=== PATIENT | female | born 1975 | race Two or more races ===

== ENCOUNTER 2019-10-14 12:14 | Emergency (ER) | payer BC, SELFPAY ==
--- NOTE | 2019-10-14 12:24 | ED.URI ---
HPI - URI/Sore Throat General Chief Complaint: Upper Respiratory Infection Stated Complaint: Congestion/Ear Pain Time Seen by Provider: 10/14/19 12:39 Source: patient and RN notes reviewed Mode of arrival: ambulatory Limitations: no limitations History of Present Illness HPI Narrative: 44-year-old female presents with concern for nasal congestion, rhinorrhea, sore throat, bilateral ear pain, occasional cough, chills, body aches that started yesterday. Reports taking Tylenol. MD elicited complaint: nasal congestion and other (Ear pain) Related Data Home Medications Medication Instructions Recorded Confirmed lisinopril 20 mg PO DAILY 10/14/19 10/14/19 Allergies Allergy/AdvReac Type Severity Reaction Status Date / Time Penicillins Allergy Rash Verified 10/14/19 12:49 Review of Systems Review of Systems: Narrative: CONSTITUTIONAL: Reports malaise, chills, sweats, fever. EYES: Denies visual changes, redness, or discharge. ENT: Reports rhinorrhea, congestion, sinus pain, otalgia and sore throat. CARDIOVASCULAR: Denies chest pain, palpitations, or edema. RESPIRATORY: Reports cough. Denies dyspnea. GASTROINTESTINAL: Denies abdominal pain, nausea, vomiting, diarrhea SKIN: Denies rash or itching. MUSCULOSKELETAL: Reports myalgia. NEUROLOGIC: Reports headache. All systems reviewed & are unremarkable except as noted in HPI and below PMFSH Comments At time of signature, agree with nursing past medical, surgical, social and family history. There is no relevant family history pertinent to the presenting complaint Exam Narrative: Exam Narrative: GENERAL: Well-appearing, well-nourished, and in no acute distress. HEAD: Normocephalic EYES: PERRLA, conjunctivae clear ENT: Nares clear, turbinates edematous and erythematous, clear discharge. Mucous membranes moist. TM pearly davies with dull light reflex bilaterally; no tragal tenderness. Oropharynx mildly erythematous without lesions. Tonsils not enlarged and without exudate, no drooling, no hoarseness, no trismus. NECK: Supple. No lymphadenopathy CHEST: Clear to auscultation, breath sounds equal. No wheezing, rhonchi, rales, or stridor. No respiratory distress, speaks in full sentences. HEART: Regular rate and rhythm. No murmur heard. Normal peripheral pulses. SKIN: Warm, dry, no rash. NEURO: Alert and oriented x3. PSYCH: Normal mood and affect Course Course Emergency Course: Patient is aware of diagnosis, understands and agrees to treatment plan. Anticipatory guidance given. Patient agrees to follow-up as directed and is aware of reasons to seek care at the emergency department. Portions of this record may have been created with voice recognition software Vital Signs Vital signs: Vital Signs Temperature 99.4 F 10/14/19 12:26 Pulse Rate 73 10/14/19 12:26 Respiratory Rate 16 10/14/19 12:26 Blood Pressure 115/76 10/14/19 12:26 Pulse Oximetry 98 10/14/19 12:26 Temperature 99.4 F 10/14/19 12:26 Pulse Rate 73 10/14/19 12:26 Respiratory Rate 16 10/14/19 12:26 Blood Pressure 115/76 10/14/19 12:26 Pulse Oximetry 98 10/14/19 12:26 Reviewed. MDM - URI/Sore Throat MDM Narrative Medical decision making narrative: Differential diagnosis considered: Strep pharyngitis, allergic rhinitis, upper respiratory tract infection, sinusitis, rhinosinusitis, nasopharyngitis. viral pharyngitis, otitis media, otitis externa, pneumonia, bronchitis, viral cough syndrome, viral syndrome, and influenza. Exam findings show no acute concerns or changes; patient is non-toxic appearing and is in no distress. Patient is appropriate for outpatient treatment and follow-up. Lab Data Attestation: I reviewed the patient's lab results. Labs: Influenza A Screen Negative Reference Range: Negative Influenza B Screen Negative Reference Range: Negative Strep Screen Presumptive Negative *(Reference Range: Negative)* Crit
[2019-10-14 12:26] VITALS: BP 115/76; PULSE 73; RESP 16; TEMP 37.4; O2SAT 98
== END 2019-10-14 13:15 | disposition home or self-care (01) ==
PROVIDERS: Emergency Provider Nurse Practitioner
DX: R09.81 Nasal congestion (principal); J34.89 Other specified disorders of nose and nasal sinuses; J02.9 Acute pharyngitis, unspecified; H92.03 Otalgia, bilateral; R05 Cough
CPT/HCPCS: 87081; 87804; 87880; 99203; G0463

== ENCOUNTER 2020-11-19 15:24 | Emergency (ER) | payer BC, SELFPAY ==
--- NOTE | 2020-11-19 15:33 | ED.SKABFB ---
HPI - Skin/Abscess/Foreign Bdy General Chief complaint: Skin/Abscess/Foreign Body Stated complaint: rash on stomach Time Seen by Provider: 11/19/20 15:39 Source: patient and RN notes reviewed History of Present Illness HPI narrative: Patient is a 45-year-old female who presents the urgent care with complaints of a rash to the abdomen, back and neck. Patient states it started on the abdomen approximately 3 days ago and her daughter told her it was starting on her back and neck. Patient states it is very itchy and tingling and she has been taking oral Benadryl and putting Vaseline to the rash. Patient denies of any any other symptoms such as upper respiratory symptoms or sore throat. Patient denies of any fever. Denies of anyone else in the home having the rash. No other acute complaints. No acute distress noted. Patient aware of the plan of care. Some parts of this dictation were generated by voice recognition software and may contain typographical and/or grammatical inaccuracies. Related Data Home Medications Medication Instructions Recorded Confirmed lisinopril-hydrochlorothiazide tablet 11/19/20 propranolol 11/19/20 topiramate 11/19/20 Allergies Allergy/AdvReac Type Severity Reaction Status Date / Time Penicillins Allergy Rash Verified 11/19/20 15:40 Review of Systems Review of Systems: Narrative: CONSTITUTIONAL: Denies fever, chills, or sweats. EYES: Denies visual changes, redness, or discharge. ENT: Denies rhinorrhea, congestion, sore throat, or otalgia. CARDIOVASCULAR: Denies chest pain, palpitations, or edema. RESPIRATORY: Denies cough or dyspnea. GASTROINTESTINAL: Denies abdominal pain, nausea, vomiting, or diarrhea. GENITOURINARY: Denies dysuria or hematuria. SKIN: Reports of an itchy red rash to the abdomen/back/neck MUSCULOSKELETAL: Denies back pain, joint pain, or myalgia. NEUROLOGIC: Denies headache, numbness, or weakness. All other systems reviewed are negative, except as documented in HPI. PMFSH Comments At the time of my signature, I reviewed and agree with the nursing past medical, surgical, social, and family history. There is no relevant family history pertinent to the patient complaint. Exam Narrative: Exam Narrative: GENERAL: This is a well-nourished, well-developed patient, in no apparent distress. HEAD: normocephalic, atraumatic. EYES: PERRL. Sclera clear/white. Vision is grossly intact. EARS: External ears normal NOSE: External nose normal with no obvious nasal discharge, nares without redness, no rhinorrhea. THROAT: Mucous membranes moist NECK: Neck supple SKIN: Pruritic slightly raised papular erythemic dermatitis noted to the abdomen; mild erythemic and dry skin noted to the back and neck NEURO: awake, alert, and oriented to person, place and time. There were no obvious focal neurologic abnormalities. EXTREMITIES: No clubbing, cyanosis, or edema. Course Vital Signs Vital signs: Vital Signs Temperature 99.6 F 11/19/20 15:36 Pulse Rate 76 11/19/20 15:36 Respiratory Rate 16 11/19/20 15:36 Blood Pressure 111/75 11/19/20 15:36 Pulse Oximetry 98 11/19/20 15:36 Temperature 99.6 F 11/19/20 15:36 Pulse Rate 76 11/19/20 15:36 Respiratory Rate 16 11/19/20 15:36 Blood Pressure 111/75 11/19/20 15:36 Pulse Oximetry 98 11/19/20 15:36 Reviewed MDM - Skin/Abscess/Foreign Bdy MDM Narrative Medical decision making narrative: Advised the patient to continue using the [id number]-ttr-olwhvjl antihistamine such as Benadryl as needed for itch relief. Complete the steroid regimen as prescribed. The steroid is meant to lessen/decrease the spread of the rash as well as decrease the itch. Use the prescription cream to the affected areas. Avoid using the cream near the eyes, underarms or groin. If you develop any spread in the rash or an significant clearing?follow-up with your PCP. Follow-up with your PCP within 2 to 5 days or for worsening symptoms or failure to impro
[2020-11-19 15:36] VITALS: BP 111/75; PULSE 76; RESP 16; TEMP 37.6; O2SAT 98
== END 2020-11-19 15:52 | disposition home or self-care (01) ==
PROVIDERS: Emergency Provider Nurse Practitioner Family; PCP Internal Medicine
DX: L30.9 Dermatitis, unspecified (principal); I10 Essential (primary) hypertension
CPT/HCPCS: 99213; G0463

== ENCOUNTER 2021-12-04 15:09 | Emergency (ER) | payer BC, SELFPAY ==
[2021-12-04 15:15] VITALS: BP 104/75; PULSE 70; RESP 16; TEMP 36.8; O2SAT 100
--- NOTE | 2021-12-04 15:15 | ED.LOWEXIN ---
HPI - Extremity Injury (Lower) General Chief Complaint: Extremity Injury, Lower Stated Complaint: Left Knee Injury Time Seen by Provider: 12/04/21 15:15 Source: patient and RN notes reviewed History of Present Illness HPI Narrative: Patient is a 46-year-old female who presents the urgent care with complaints of left knee pain. Patient states that yesterday her large pitbull ran into her left knee while he was running around in circles. Patient states that her knee only hurts when she flexes the leg outward and with weightbearing. Patient has been wearing a knee brace [id number]. 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 Patient denies of any swelling. She has been taking Tylenol without relief. No other acute complaints. No acute distress noted. Patient aware of the plan of care. Some parts of this dictation were generated by voice recognition software and may contain typographical and/or grammatical inaccuracies. Related Data Home Medications Medication Instructions Recorded Confirmed buspirone 15 mg PO DAILY 12/04/21 12/04/21 [id number]-nidkkvoftoxzg-tdle 1 tablet PO Q4-6H PRN 12/04/21 12/04/21 lisinopril-hydrochlorothiazide 1 tablet PO DAILY 12/04/21 12/04/21 quetiapine 50 mg PO TID 12/04/21 12/04/21 topiramate 200 mg PO BID 12/04/21 12/04/21 Allergies Allergy/AdvReac Type Severity Reaction Status Date / Time Penicillins Allergy Rash Verified 11/19/20 15:40 Review of Systems Review of Systems: CONSTITUTIONAL: Denies fever, chills, or sweats. EYES: Denies visual changes, redness, or discharge. ENT: Denies rhinorrhea, congestion, sore throat, or otalgia. CARDIOVASCULAR: Denies chest pain, palpitations, or edema. RESPIRATORY: Denies cough or dyspnea. GASTROINTESTINAL: Denies abdominal pain, nausea, vomiting, or diarrhea. GENITOURINARY: Denies dysuria or hematuria. SKIN: Denies rash or itching. MUSCULOSKELETAL: Reports of left knee pain NEUROLOGIC: Denies headache, numbness, or weakness. All other systems reviewed are negative, except as documented in HPI. PMFSH Comments At the time of my signature, I reviewed and agree with the nursing past medical, surgical, social, and family history. There is no relevant family history pertinent to the patient complaint. Exam Narrative: GENERAL: This is a well-nourished, well-developed patient, in no apparent distress. HEAD: normocephalic, atraumatic. EYES: PERRL. Sclera clear/white. Vision is grossly intact. EARS: External ears normal NOSE: External nose normal with no obvious nasal discharge, nares without redness, no rhinorrhea. THROAT: Mucous membranes moist NECK: Neck supple SKIN: warm, intact with no suspicious lesions or rash, good texture and turgor. NEURO: awake, alert, and oriented to person, place and time. There were no obvious focal neurologic abnormalities. EXTREMITIES: No obvious effusion or deformity noted to the left knee. Exacerbated pain on outward flexion and weightbearing. Positive strong left pedal pulse with capillary refill less than 2 seconds. Negative drawer test. Course Course Level of Care: Express Care Visit Vital Signs Vital signs: Vital Signs Temperature 98.2 F 12/04/21 15:15 Pulse Rate 70 12/04/21 15:15 Respiratory Rate 16 12/04/21 15:15 Blood Pressure 104/75 12/04/21 15:15 Pulse Oximetry 100 12/04/21 15:15 Temperature 98.2 F 12/04/21 15:15 Pulse Rate 70 12/04/21 15:15 Respiratory Rate 16 12/04/21 15:15 Blood Pressure 104/75 12/04/21 15:15 Pulse Oximetry 100 12/04/21 15:15 Reviewed MDM - Extremity Injury (Lower) MDM Narrative Medical decision making narrative: Advised the patient to continue wearing her knee brace to the left knee with elevation and ice for comfort. Use the tramadol as needed for pain. Do not take tramadol together with NSAIDs however you may use Tylenol intermittently as needed. Try to stay off the leg is mu
== END 2021-12-04 15:45 | disposition home or self-care (01) ==
PROVIDERS: Emergency Provider Nurse Practitioner Family; PCP Internal Medicine
DX: M25.562 Pain in left knee (principal); I10 Essential (primary) hypertension
CPT/HCPCS: 99213; G0463

== ENCOUNTER 2023-07-21 13:12 | Emergency (ER) | payer BC, SELFPAY ==
[2023-07-21 13:20] VITALS: BP 151/91; PULSE 95; RESP 12; TEMP 36.8; O2SAT 99
--- NOTE | 2023-07-21 13:29 | ED.URI ---
HPI - URI/Sore Throat General Chief Complaint: Upper Respiratory Infection Stated Complaint: Congestion/Chest Congestion/Nausea Source: patient, RN notes reviewed and old records reviewed Mode of arrival: ambulatory Limitations: no limitations History of Present Illness HPI Narrative: 48-year-old female presents to urgent care with complaint productive cough, sinus congestion, fever and chills, and nausea for 2 weeks. Patient taken xsmh-gxi-lpxzbif sinus/ cold medications in using nasal spray with no relief. Patient states on clindamycin for a dental issue, that was given to her by her nurse hotline. Patient denies chest pain, shortness of breath, dizziness, weakness. MD elicited complaint: fever, cough and nasal congestion Onset (ago): week(s) (2) Related Data Home Medications Medication Instructions Recorded Confirmed buspirone 15 mg tablet 15 mg PO DAILY 12/04/21 12/04/21 [id number]-tnksyqbvmclyh-kkfnjsnu 1 tablet PO Q4-6H PRN pain 12/04/21 12/04/21 50 mg-325 mg-40 mg tablet lisinopril 20 1 tablet PO DAILY 12/04/21 12/04/21 mg-hydrochlorothiazide 12.5 mg tablet quetiapine 50 mg tablet 50 mg PO TID 12/04/21 12/04/21 acetaminophen 300 mg-codeine 30 mg tablet 07/21/23 tablet clindamycin HCl 150 mg capsule mg 07/21/23 trazodone 100 mg tablet mg 07/21/23 trazodone 150 mg tablet mg 07/21/23 07/21/23 Allergies Allergy/AdvReac Type Severity Reaction Status Date / Time Penicillins Allergy Rash Verified 07/21/23 13:13 Review of Systems Constitutional: Constitutional: Reports as per HPI, Reports body ache(s), Reports chills and Reports fever(s) Eyes: Eyes: Reports no additional eye complaints ENT: Reports system reviewed and no additional complaints, except as documented Cardiovascular: Cardiovascular: Reports no additional cardiovascular complaints Respiratory: Respiratory: Reports as per HPI, Reports chest congestion and Reports cough Gastrointestinal: Gastrointestinal: Reports as per HPI, Reports nausea and Denies vomiting Neurologic: Reports system reviewed and no additional complaints, except as documented PMFSH Comments At the time of my signature, I reviewed and agree with the nursing past medical, surgical, social, and family history. There is no relevant family history pertinent to the patient complaint. Exam Const: General: cooperative, healthy appearing, no acute distress and well nourished Nutritional Appearance: well nourished Orientation/consciousness: patient oriented x3 Limitations: no limitations HENMT: Head: normal to inspection and normocephalic Ears: external ears normal, TM's normal bilaterally, mastoids normal and Abnormal EAC present Face/Nose/Sinus: normal facial exam Face and sinus: normal facial exam Mouth: Yes Normal oral and palatal mucosa present, Yes oropharynx normal and Yes moist mucous membranes Throat: posterior oropharynx normal, tonsils normal, uvula midline and no uvular edema Eyes: General: appearance normal, both eyes and all related structures Sclera: sclerae normal Pupils: Equal, round and reactive pupils present Resp: Effort & Inspection: normal respiratory effort, able to speak in complete sentences, no audible wheezes, no cough, no respiratory distress and no retractions Auscultation: clear to auscultation bilaterally, no crackles, no rales, no rhonchi and no wheezes Cardio: Rate: regular rate Rhythm: regular rhythm Skin: General skin exam: normal color and no rashes or lesions noted Neuro: General: patient oriented x3 Cranial nerves: Yes Equal, round and reactive pupils present Psych: Appearance: grossly normal Course Course Emergency Course: Some parts of this dictation were generated by voice recognition software and may contain typographical and/or grammatical inaccuracies. Level of Care: Express Care Visit Vital Signs Vital signs: Vital Signs Temperature 98.2 F 07/21/23 13:20 Pulse Rate 95 07/21/23 13:20 Respiratory
== END 2023-07-21 13:45 | disposition home or self-care (01) ==
PROVIDERS: Emergency Provider Registered Nurse; PCP Physician Assistant
DX: J32.9 Chronic sinusitis, unspecified (principal); I10 Essential (primary) hypertension
CPT/HCPCS: 99213; G0463

== ENCOUNTER 2023-11-03 01:34 | Day surgery (SDC) | payer BC, SELFPAY ==
[2023-10-26 14:27] VITALS: BMI 26.2
[2023-11-03 09:41] VITALS: BP 113/70; PULSE 66; RESP 18; TEMP 36.2; O2SAT 100
[2023-11-03] MEDS: LACTATED RINGERS 1,000 ML 150 ML IV CONT (09:49)
--- NOTE | 2023-11-03 10:12 | P.PNAN_ITS ---
Anes - Initial Pre Proc Eval Procedure: Operation Date: 11/03/23 11:00 Proposed Procedures p Colonoscopy - Oscar Sloan MD Date/Time: 11/03/23 10:12 Surgeon: Oscar Sloan MD Pre Op Diagnosis: hx colon polyps Patient Data Age: 48 Gender: F Height: 1.65 m Weight: 72.6 kg Last Vital Signs Temp 97.1 F L 11/03/23 09:41 Pulse 66 11/03/23 09:41 Resp 18 11/03/23 09:41 BP 113/70 11/03/23 09:41 Pulse Ox 100 11/03/23 09:41 O2 Del Method Room Air 11/03/23 09:41 Allergies Allergy/AdvReac Type Severity Reaction Status Date / Time Penicillins Allergy Rash Verified 11/03/23 09:39 Home Medications Medication Instructions Recorded Confirmed Type buspirone 15 mg tablet 15 mg PO DAILY 12/04/21 10/26/23 History [id number]-ijfqaetndyuog-lrehxnrx 1 tablet PO Q4-6H PRN pain 12/04/21 10/26/23 History 50 mg-325 mg-40 mg tablet lisinopril 20 1 tablet PO DAILY 12/04/21 10/26/23 History mg-hydrochlorothiazide 12.5 mg tablet quetiapine 50 mg tablet 50 mg PO DAILY 12/04/21 10/26/23 History acetaminophen 300 mg-codeine 30 mg 2 tablet PO Q6-8H PRN Migraine 07/21/23 10/26/23 History tablet Headache trazodone 100 mg tablet 100 mg PO BID 07/21/23 10/26/23 History tirzepatide (weight loss) 2.5 mg subcut WEEKLY 10/26/23 History mg/0.5 mL subcutaneous pen injector (Zepbound) Patient hx anesthesia problems: none Family hx anesthesia problems: none Results Review: All pre-operative results and documents have been reviewed as part of the pre-operative evaluation. [facility] Social History Social History Living arrangements: with family Spiritual care concerns: No Anes - Eval Final PreProcedure Day of Procedure 11/03/23 10:12 Patient weight: normal Heart: regular rate and rhythm Lungs: clear to auscultation Airway: Mallampati scale class II Neurological: alert and oriented Last oral intake: >/= 8 hours ASA classification: II Emergent: no Anesthetic plan: proceed Anesthesia type and monitoring: general GIVS and standard monitoring Results Review: All pre-operative results and documents have been reviewed as part of the pre- operative evaluation. Informed Consent: The patient's anesthetic plan and its attendant risks and benefits were discussed with the patient/family/POA. Questions were solicited and answers provided to the satisfaction of the patient/family/POA.
--- NOTE | 2023-11-03 10:38 | PM.HPGS ---
History of Present Illness History of Present Illness Consent: Risks, benefits, and alternatives have been discussed and questions answered. Patient agrees to proceed with procedure. Chief complaint: hx colon polyps Narrative: Khloe Hendricks is a 48 year old female with colon polyp 5 years ago Review of Systems Review of Systems: All systems reviewed & are unremarkable except as noted in HPI and below PMFSH Past Medical History Medical History (Updated 11/03/23 @ 10:38 by Oscar Sloan MD) Colon polyp Social History Social History Living arrangements: with family Spiritual care concerns: No Meds Home Medications and Allergies Home Medications Medication Instructions Recorded Confirmed Type buspirone 15 mg tablet 15 mg PO DAILY 12/04/21 10/26/23 History gdkuahfker-yiocwdkfvpsyh-jioqavxo 1 tablet PO Q4-6H PRN pain 12/04/21 10/26/23 History 50 mg-325 mg-40 mg tablet lisinopril 20 1 tablet PO DAILY 12/04/21 10/26/23 History mg-hydrochlorothiazide 12.5 mg tablet quetiapine 50 mg tablet 50 mg PO DAILY 12/04/21 10/26/23 History acetaminophen 300 mg-codeine 30 mg 2 tablet PO Q6-8H PRN Migraine 07/21/23 10/26/23 History tablet Headache trazodone 100 mg tablet 100 mg PO BID 07/21/23 10/26/23 History tirzepatide (weight loss) 2.5 mg subcut WEEKLY 10/26/23 History mg/0.5 mL subcutaneous pen injector (Zepbound) Allergies Allergy/AdvReac Type Severity Reaction Status Date / Time Penicillins Allergy Rash Verified 11/03/23 09:39 Vital Signs Vital Signs - 24 hr 11/03/23 09:41 Temperature 97.1 F L Pulse Rate 66 Respiratory Rate 18 Blood Pressure 113/70 Pulse Oximetry 100 Oxygen Delivery Room Air Exam Const: General: comfortable and no acute distress HENMT: Face/Nose/Sinus: Normal nares present Eyes: General: appearance normal, both eyes and all related structures Neck: Neck: no JVD Resp: Auscultation: clear to auscultation bilaterally Cardio: Rate: regular rate Rhythm: regular rhythm GI: Inspection: non-distended GI Palp: Yes Soft to palpation Skin: General skin exam: normal color Neuro: General: gait normal Speech: normal speech Extrem: General: normal to inspection Psych: Mental Status: mental status grossly normal Assessment and Plan Assessment and plan (1) Colon polyp: Code(s): K63.5 - Polyp of colon Status: Acute Assessment and Plan: colonoscopy
[2023-11-03 10:59] VITALS: BP 102/67; PULSE 62; RESP 11; O2SAT 97
[2023-11-03 11:09] VITALS: BP 105/60; PULSE 67; RESP 14; O2SAT 99
[2023-11-03 11:19] VITALS: BP 119/74; PULSE 76; RESP 17; O2SAT 100
== END 2023-11-03 11:22 | disposition home or self-care (01) ==
PROVIDERS: PCP Physician Assistant; Visit Provider Internal Medicine Gastroenterology
PROC: 0DJD8ZZ Inspection of Lower Intestinal Tract, Via Natural or Artificial Opening Endoscopic (ICD-10-PCS; CPT 45378; principal; 2023-11-03 11:00)
DX: Z12.11 Encounter for screening for malignant neoplasm of colon (principal); K64.8 Other hemorrhoids; Z79.85 Long-term (current) use of injectable non-insulin antidiabetic drugs; Z86.010 Personal history of colon polyps
CPT/HCPCS: 45378; J2704; J7120